=== PATIENT | female | born 1990 | race Caucasian/White ===

== ENCOUNTER 2018-02-01 11:02 | Emergency (ER) | payer OTHER ==
[2018-02-01 11:43] VITALS: BP 118/73
[2018-02-01] MEDS ORDERED: Albuterol/Ipratropium NEB.SOL* Albuterol 2.5 MG/Ipratropium 0.5 MG 3 ML INH ONE (12:16)
[2018-02-01] MEDS ORDERED: predniSONE TAB* 20 MG PO ONE (12:16)
[2018-02-01] MEDS ORDERED: Azithromycin TAB* 250 MG PO ONE (12:19)
--- NOTE | 2018-02-01 12:26 | ED ---
Respiratory - HPI Summary HPI Summary: 27 yr old female with the complaint of sore throat, runny nose, coughing, wheezing. The patient has been ill for the past 4-5 days. She has a history of asthma in the past. She is 36 weeks . She has no abdominal pain, no bloody show, no leakage of fluid. No other complaints. - History of Current Complaint Chief Complaint: UCRespiratory Stated Complaint: COUGH,SORE THROAT Time Seen by Provider: 02/01/18 12:06 Pain Intensity: 0 - Allergy/Home Medications Allergies/Adverse Reactions: Allergies Allergy/AdvReac Type Severity Reaction Status Date / Time No Known Allergies Allergy Verified 02/01/18 11:37 Home Medications: Home Medications Buprenorphine TAB* [Subutex TAB*] 2 mg SL DAILY 02/01/18 [History Confirmed ] Ibuprofen/Pseudoephedrine HCl [Advil Cold & Sinus] 2 tab PO Q4H PRN 02/01/18 [ History Confirmed 02/01/18] Vitamin TAB* 1 tab PO DAILY 02/01/18 [History Confirmed 02/01/18] PMH/Surg Hx/FS Hx/Imm Hx Infectious Disease History: No Infectious Disease History: Denies: Traveled Outside the [place] in Last 30 Days - Family History Known Family History: Positive: None - Social History Alcohol Use: None Substance Use Type: Reports: None Smoking Status (MU): Light Every Day Tobacco Smoker Type: Cigarettes Amount Used/How Often: ~1/4 PPD Length of Time of Smoking/Using Tobacco: Since Age 16 Review of Systems Constitutional: Negative Positive: Sore Throat, Nasal Discharge Positive: Shortness Of Breath, Cough All Other Systems Reviewed And Are Negative: Yes Physical Exam Triage Information Reviewed: Yes Vital Signs On Initial Exam: Initial Vitals Temp Pulse Resp BP Pulse Ox 98.1 F 82 18 118/73 100 02/01/18 11:36 02/01/18 11:36 02/01/18 11:36 02/01/18 11:36 02/01/18 11:36 Vital Signs Reviewed: Yes Appearance: Positive: Well-Appearing, No Pain Distress Skin: Positive: Warm, Skin Color Reflects Adequate Perfusion Head/Face: Positive: Normal Head/Face Inspection Eyes: Positive: EOMI ENT: Positive: Pharyngeal erythema, TM red - right with effusion Neck: Positive: Nontender Respiratory/Lung Sounds: Positive: Wheezes - bilaterally, Other - no respiratory distress.. Negative: Stridor Cardiovascular: Positive: RRR. Negative: Murmur Abdomen Description: Positive: Nontender Musculoskeletal: Positive: Strength/ROM Intact Neurological: Positive: Sensory/Motor Intact, Alert, Oriented to Person Place, Time, CN Intact II-III Psychiatric: Positive: Normal - [place] Coma Scale Best Eye Response: 4 - Spontaneous Best Motor Response: 6 - Obeys Commands Best Verbal Response: 5 - Oriented Coma Scale Total: 15 Diagnostics - Vital Signs Vital Signs Temp Pulse Resp BP Pulse Ox 02/01/18 11:36 98.1 F 82 18 118/73 100 - Laboratory Lab Statement: Any lab studies that have been ordered have been reviewed, and results considered in the medical decision making process. Re-Evaluation - Re-Evaluation First Eval Re-Evaluation Time: 12:43 Change: Improved Comment: Lungs clear on reevaluation. No wheezing. Disposition - Course Course Of Treatment: 27 yr old with right OM, URI symptoms with asthma exacerbation. Rx with zithromax, prednisone, albuterol MDI. - Diagnoses Provider Diagnoses: Otitis media, Asthma exacerbation Discharge - Sign-Out/Discharge Documenting (check all that apply): Discharge/Admit/Transfer - Discharge Plan Condition: Good Disposition: HOME Prescriptions: Albuterol HFA INHALER* [Ventolin HFA Inhaler*] 1 - 2 puff INH Q4H PRN #1 mdi PRN Reason: Wheezing Azithromycin TAB* [Zithromax TAB (Z-TIAGO) 250 mg #6 tabs] 2 tab PO .TODAY, THEN 1 DAILY #1 tiago predniSONE TAB* [Deltasone 20 MG TAB*] 40 mg PO DAILY #8 tab Patient Education Materials: Ear Infection (ED), Bronchospasm (ED) Referrals: Austin Lindsay MD [Primary Care Provider] - 2 Days - Billing Disposition and Condition Condition: GOOD Disposition: Home
== END 2018-02-01 12:50 | disposition home or self-care (01) ==
LOC: UCCORT 11:02
DX: H65.91 Unspecified nonsuppurative otitis media, right ear (principal); J45.901 Unspecified asthma with (acute) exacerbation; F17.210 Nicotine dependence, cigarettes, uncomplicated
CPT/HCPCS: 99213; A9270-GY; G0463; J7512